=== PATIENT | male | born 2005 | race Caucasian/White ===

== ENCOUNTER 2024-02-18 15:12 | Emergency (ER) | payer BC, SELFPAY ==
--- NOTE | ~2024-02-18 | XR_ITS ---
EXAM: XR hand LT min 3V DATE: 02/18/2024 18:16 HISTORY: rule out foreign body . COMPARISON: None available. FINDINGS: Normal mineralization. No fracture or dislocation. No lytic or blastic lesion. Joint space s are maintained. No erosion or periosteal change. Soft tissues within normal limits. IMPRESSION: No acute osseous finding in the left hand. No radiopaque foreign body. Reviewed, dictated and finalized at location K. IMPRESSION: No acute osseous finding in the left hand. No radiopaque foreign ratna dy.
[2024-02-18 15:45] VITALS: BP 185/91; PULSE 87; RESP 16; TEMP 36.6; O2SAT 100
[2024-02-18 17:46] VITALS: BP 140/88; PULSE 73; RESP 18; O2SAT 100
[2024-02-18] MEDS: TETANUS,DIPHTHERIA,AC PERTUSSIS ADULT (0.5 ML) BOOSTRIX IM (18:30)
--- NOTE | 2024-02-18 18:30 | ED.GENADULT ---
[facility] - General Adult General Chief complaint: Wound/Laceration Stated complaint: laceration Time Seen by Provider: 02/18/24 17:48 Source: patient Mode of arrival: ambulatory Limitations: no limitations History of Present Illness HPI narrative: This is a 18-year-old male who presents to the ED with chief complaint of right hand laceration occurring at work today. Patient states he was walking by a bench when he accidentally got cut by a piece of sheet metal. Patient reports there was a decent bleeding at the time but this has since stopped. Denies any further sites of pain or injury. Unsure of tetanus status Related Data Allergies Allergy/AdvReac Type Severity Reaction Status Date / Time amoxicillin Allergy Unknown Rash Verified 02/18/24 15:48 clavulanic acid Allergy Unknown Rash Verified 02/18/24 15:48 Review of Systems Review of Systems: All systems as dictated in [facility] Social History Social History Smoking status: Never smoker Alcohol intake: never Exam Narrative: GENERAL: Well-appearing, well-nourished, and in no acute distress. HEAD: Normocephalic, atraumatic. EYES: PERRLA and EOMI. ENT: Nares clear, no rhinorrhea or epistaxis. Mucous membranes moist. Oropharynx without tonsillar hypertrophy exudate or other lesions. NECK: Supple. No adenopathy or masses. CHEST: No respiratory distress. Clear to auscultation. No wheezes rales or rhonchi HEART: Regular rate and rhythm. No murmur heard. Normal peripheral pulses. ABDOMEN: Soft, nontender, nondistended, normal active bowel sounds. MSK: Normal range of motion. No edema. SKIN: 1 cm superficial laceration to the dorsum of the right hand. No bleeding. NEURO: Alert and oriented x3. No focal deficits. PSYCH: Normal mood and affect. Course Vital Signs Vital signs: Vital Signs Temperature 97.8 F 02/18/24 15:45 Pulse Rate 87 02/18/24 15:45 Respiratory Rate 16 02/18/24 15:45 Blood Pressure 185/91 H 02/18/24 15:45 Pulse Oximetry 100 02/18/24 15:45 Oxygen Delivery Room Air 02/18/24 15:45 Temperature 97.8 F 02/18/24 15:45 Pulse Rate 73 02/18/24 17:46 Respiratory Rate 18 02/18/24 17:46 Blood Pressure 140/88 04/01/24 17:46 Pulse Oximetry 100 02/18/24 17:46 Oxygen Delivery Room Air 02/18/24 15:45 Procedures Laceration Laceration 1: Date: 02/18/24 Time: 17:30 Site: hand Side (If applicable): right Size (cm): 1 Description: linear Depth: simple, single layer Local Anesthetic: none Pre-repair: irrigated extensively ====== Skin Level ====== Skin layer closed with: steri strips ====== Subcutaneous Layer ====== ====== Muscle Layer ====== ====== Tendon Layer ====== Medical Decision Making MDM Narrative Medical decision making narrative: This is a 18-year-old male who presents to the ED with chief complaint of right hand laceration that occurred while a work today. Vitals are normal. Exam remarkable for the above. The laceration is actually quite superficial in nature. Only about 1-1.5 cm in length. The wound was well cleansed and irrigated here. Tetanus status was updated. Closed the wound with Steri-Strips. Pt will be discharged in stable condition. Return precautions given and supportive measures discussed. Pt is understanding and agreeable with plan for discharge and follow-up with PCP. Vital Signs Vital Signs: Vital Signs Temperature 97.8 F 02/18/24 15:45 Pulse Rate 87 02/18/24 15:45 Respiratory Rate 16 02/18/24 15:45 Blood Pressure 185/91 H 02/18/24 15:45 Pulse Oximetry 100 02/18/24 15:45 Oxygen Delivery Room Air 02/18/24 15:45 Temperature 97.8 F 02/18/24 15:45 Pulse Rate 73 02/18/24 17:46 Respiratory Rate 18 02/18/24 17:46 Blood Pressure 140/88 02/18/24 17:46 Pulse Oximetry 100 02/18/24 17:46 Oxygen Delivery Room Air 02/18/24 15:45 Dischar
== END 2024-02-18 19:10 | disposition home or self-care (01) ==
PROVIDERS: Emergency Provider Physician Assistant; PCP Pediatrics
DX: S61.411A Laceration without foreign body of right hand, initial encounter (principal); Z23 Encounter for immunization; W26.8XXA Contact with other sharp object(s), not elsewhere classified, initial encounter
CPT/HCPCS: 73130; 90471; 90714; 90715; 99283

== ENCOUNTER 2025-07-21 08:22 | Outpatient (CLI) | payer OTHER, BC, SELFPAY ==
--- NOTE | ~2025-07-21 | US_ITS ---
EXAMINATION: US retroperitoneal duplex ltd DATE: 07/27/2025 18:55 CDT INDICATION: Hypertension TECHNIQUE: Sonographic imaging of the kidneys was performed with a 3.5 MHz transducer. Retroperitoneal duplex sonogram of the renal arteries also obtained. FINDINGS: No focal flow abnormalities are seen in the renal arteries on color Doppler. The peak systolic velocity ranges of the right and left renal arteries and aorta are 175 cm per second, 185 cm per second, and 208 cm per second, respectively. The velocities and renal to aortic ratios are within normal limits. IMPRESSION: 1. Elevated systolic velocity in the renal arteries, compatible with renal artery stenosis although the renal artery/aortic systolic ratios are within normal limits. Reviewed, dictated and finalized at location O. IMPRESSION: 1. Elevated systolic velocity in the renal arteries, compatible with renal art sathish stenosis although the renal artery/aortic systolic ratios are within normal limits.
== END 2025-07-21 08:23 | disposition home or self-care (01) ==
PROVIDERS: PCP Family Medicine; Visit Provider Internal Medicine
DX: I70.1 Atherosclerosis of renal artery (principal); I10 Essential (primary) hypertension
CPT/HCPCS: 93976